=== PATIENT | female | born 1960 | race Caucasian/White ===

== ENCOUNTER 2017-07-13 03:10 | Emergency (ER) | payer OTHER ==
[~2017-07-13] VITALS: Ht 157.5 cm; Wt 78.7 kg
[~2017-07-13 03:10] MED LIST: AMOXICILLIN500 MG PO; BUSPAR10 MG PO; CENTRUM SILVER1 EAC3 PO; CYMBALTA60 MG PO; EXALGO8 MG PO; FENOFIBRATE145 M1 PO; FLONASE16 G1 BOTH NARES; IRON325 MG PO; LYRICA100 MG PO; OXYCODONE HCL5 M1 PO; OXYCODONE-APAP1 EACH PO; OXYCONTIN40 MG PO; PRISTIQ50 MG PO; SERTRALINE HCL50 MG PO; SUMATRIPTA6 MG/0.51 SC; SYMBICORT60 INHALA1 IH; TYLENOL REGULA325 MG PO; ZANAFLEX4 M1 PO
[2017-07-13 03:49] LABS: BASOPHIL COUNT 0.1 K/uL (0-0.1); EOSINOPHIL (%) 2.9 % (0-5); EOSINOPHIL COUNT 0.2 K/uL (0-0.3); HEMATOCRIT 35.8 % (36.0-46.0); IMMATURE GRANULOCYTE (%) 0.4 % (0.0-0.7); INSTRUMENT ABS NEUTROPHIL CT 4.3 K/uL; LYMPHOCYTE COUNT 2.6 K/uL (1.0-2.8); MCH 30.5 PG (29.0-34.0); MCHC 33.5 G/DL (30.0-36.0); MCV 91.1 FL (83-99); MONOCYTE (%) 6.8 % (3-12); MONOCYTE COUNT 0.5 K/uL (0-0.8); NEUTROPHIL (%) 55.4 % (45-76); NEUTROPHIL COUNT 4.3 K/uL (1.8-6.4); PLATELET COUNT 300 K/uL (156-360); RBC DIS.WIDTH-CV 13.2 % (11.8-14.6); RED BLOOD COUNT 3.93 M/uL (3.80-5.20); WHITE BLOOD COUNT 7.7 K/uL (4.1-10.2)
[2017-07-13 03:58] LABS: CHLORIDE 103 mEq/L (99-109); POTASSIUM 3.7 mEq/L (3.7-5.4); SODIUM 136 mEq/L (136-147)
[2017-07-13 04:00] LABS: GLUCOSE 109 mg/dL (70-99)
[2017-07-13 04:02] LABS: ANION GAP 9 MEQ/L (2-14); TOTAL BILIRUBIN 0.4 mg/dL (0.0-1.0)
[2017-07-13 04:04] LABS: ALKALINE PHOSPHATASE 96 IU/L (3-129); GFR ESTIMATE (CALCULATED) > 59 mL/min/
[2017-07-13 04:05] LABS: UREA NITROGEN (BUN) 7 mg/dL (9-23)
[2017-07-13] MEDS ORDERED: KEFLEX500 MG PO (05:37)
[2017-07-13 05:55] VITALS: BP 98/62
== END 2017-07-13 05:55 | disposition home or self-care (01) ==
LOC: EME 03:10
PROVIDERS: Emergency Medicine
DX: T81.4XXA Infection following a procedure, initial encounter (principal); L03.213 Periorbital cellulitis; J44.9 Chronic obstructive pulmonary disease, unspecified; M79.7 Fibromyalgia; F32.9 Major depressive disorder, single episode, unspecified; Z72.0 Tobacco use
CPT/HCPCS: 70481; 80053; 83605; 85025; 87070; 87075; 87205; 99281; 99285; J7030